=== PATIENT | female | born 1965 | race African-American/Black ===

== ENCOUNTER 2020-06-09 12:13 | Emergency (ER) | payer OTHER ==
[2020-06-10 12:54] LABS: SARS-CoV-2 MS2 Positive; SARS-CoV-2 N Gene Negative; SARS-CoV-2 S Gene Negative; SARS-CoV-2 by NAA Not Detected (NotDetected); SARS-CoV-2 orf1ab Negative
== END 2020-06-09 12:27 | disposition home or self-care (01) ==
LOC: ERS 12:13
DX: R05 Cough (principal); R09.81 Nasal congestion; R11.2 Nausea with vomiting, unspecified; Z20.828 Contact with and (suspected) exposure to other viral communicable diseases; E11.9 Type 2 diabetes mellitus without complications; I10 Essential (primary) hypertension; E78.5 Hyperlipidemia, unspecified; F43.10 Post-traumatic stress disorder, unspecified; F32.9 Major depressive disorder, single episode, unspecified
CPT/HCPCS: 87635; 99283; U0003

== ENCOUNTER 2020-06-15 10:34 | Inpatient (IN) | payer OTHER ==
[2020-06-15 11:28] LABS: #Basophils 0.1 thou/uL (0.0-0.2); #Eosinphils 0.2 thou/uL (0.0-0.7); #Lymphocytes 2.5 thou/uL (1.20-3.40); #Monocytes 0.8 thou/uL (0.11-0.59); #Neutrophils 7.3 thou/uL (1.40-6.50); %Basophils 0.5 % (0.0-1.0); %Eosinophils 1.7 % (0.0-10.0); %Lymphocytes 23.1 % (21.0-51.0); %Monocytes 7.2 % (0.0-10.0); %Neutrophils 67.6 % (42.0-75.0); Mean Corpuscular HGB CONC 34.7 g/dL (32.0-36.0); Mean Corpuscular Hemoglobin 31.6 pg (27.0-31.0); Mean Corpuscular Volume 90.8 fL (78.0-98.0); Mean Platelet Volume 7.6 fL (7.4-10.4); Platelet Count 258 thou/uL (130-400); RBC Distribution Width 11.4 % (11.5-14.5); Red Blood Cell (RBC) Count 3.49 mill/uL (4.20-5.40); White Blood Cell (WBC) Count 10.8 thou/uL (4.8-10.8)
--- NOTE | 2020-06-15 11:33 | RAD ---
PORTABLE CHEST 1 VIEW: DATE: 06/15/2020. TIME: 11:50 AM. HISTORY: Cough and shortness of breath. FINDINGS: The heart size is normal. The lungs are expanded without focal areas of consolidation, pneumothorace s, or pleural effusions. There are degenerative changes in the spine. IMPRESSION: No acute process. POS: OFF
[2020-06-15 11:45] LABS: ALT (SGPT) 14 U/L (8-55); AST (SGOT) 13 U/L (5-34); Albumin 3.1 g/dL (3.5-5.0); Alkaline Phosphatase 110 U/L (40-110); Anion Gap 13 mmol/L (10-20); BUN (Urea Nitrogen) 22 mg/dL (9.8-20.1); Bilirubin, Total Less than 0.2 mg/dL (0.2-1.2); Calc. Creatinine Clearance 0 mL/min (70-130); Calcium 8.5 mg/dL (7.8-10.44); Carbon Dioxide 22 mmol/L (22-29); Chloride 101 mmol/L (98-107); Estimated GFR-MDRD 21; Globulin 3.6 g/dL (2.4-3.5); Glucose 300 mg/dL (70-105); Potassium 4.6 mmol/L (3.5-5.1); Protein, Total 6.7 g/dL (6.0-8.3); Sodium 131 mmol/L (136-145)
[2020-06-15 12:33] LABS: CKMB 3.7 ng/mL (0-6.6)
[2020-06-15] MEDS ORDERED: Aspirin Chewable 81 MG TAB ONE (12:53)
[2020-06-15] MEDS ORDERED: Nitroglycerin 2% Ointment 1 INCH/1 GM Packet ONE (12:53)
[2020-06-15] MEDS ORDERED: Dexamethasone 10 MG/ML VIAL ONE (12:53)
[2020-06-15] MEDS ORDERED: Enoxaparin Sodium 100 MG/ML SYRINGE ONE (13:06)
[2020-06-15 13:29] LABS: SARS-CoV-2 NAA Rapid Test Not Detected (NotDetected)
[2020-06-15] MEDS ORDERED: Nitroglycerin 0.4 MG TAB (25 Tab Bottle) PO PRN (14:18)
[2020-06-15] MEDS ORDERED: hydrALAZINE 20 MG/ML VIAL SLOW IVP PRN (14:23)
[2020-06-15] MEDS ORDERED: Labetalol HCl 100 MG/20 ML VIAL SLOW IVP PRN (14:23)
[2020-06-15] MEDS ORDERED: Dextrose 5% in Water 1,000 ML IV PRN (14:24)
[2020-06-15] MEDS ORDERED: Ondansetron ODT 4 MG TAB PO PRN (14:24)
[2020-06-15] MEDS ORDERED: Guaifenesin DM 100-10/5 ML UDCUP PO PRN (14:24)
[2020-06-15] MEDS ORDERED: Acetaminophen 325 MG TAB PO PRN (14:24)
[2020-06-15] MEDS ORDERED: HumaLOG 300 UNITS/3 ML VIAL SC PRN (14:24)
[2020-06-15] MEDS ORDERED: Acetaminophen 650 MG Suppository PR PRN (14:24)
[2020-06-15] MEDS ORDERED: Calcium Carbonate 500 MG ChewTAB PO PRN (14:24)
[2020-06-15] MEDS ORDERED: Ondansetron PF 4 MG/2 ML Vial IVP PRN (14:24)
[2020-06-15] MEDS ORDERED: Dextrose 50% Abboject 50 ML SYRINGE SLOW IVP PRN (14:24)
[2020-06-15] MEDS ORDERED: Sodium Chloride 0.9% 1,000 ML IV SCH (14:30)
--- NOTE | 2020-06-15 15:06 | HP ---
PRIMARY CARE PHYSICIAN: None. CHIEF COMPLAINT: Shortness of breath. HISTORY OF PRESENT ILLNESS: The patient is a 54-year-old female with a past medical history significant for hypertension; hyperlipidemia; diabetes, type 2, non- insulin dependent and noncompliant; GERD; and PTSD, who presents to the ER for the above complaint. The patient reports worsening shortness of breath over the past week. She reports that she believes it started over the weekend, Saturday evening. She reports that the shortness of breath starts when she sleeps. She reports associated cough, nasal congestion, and sore throat. She reports that she has been taking Mucinex, throat lozenges, and gargling with salt water. She did report a fever subjective approximately 2 days ago. She did not check her temperature, but reports that she had some chills. She works at [employer] and she was concerned for COVID. She reports that she was actually tested last prior to her symptoms and was negative. She denies any chest pain or heart palpitation or swelling to her lower extremities. She denies any wheezing or history of PE or DVT. She denies any abdominal pain or vomiting. She does report a couple episodes of diarrhea, but denies any blood in her stool. She has not been on any recent antibiotics, had any travel, or been in the hospital. She has not eaten any uncooked foods. In the ER, she presented hypertensive with a normal heart rate, respiratory rate, and O2 saturation. She was afebrile. EKG was normal sinus rhythm with some T-wave abnormalities. Chest x-ray was negative for any acute process. Initial troponin 0.053. BNP was 59.4. Sodium 131, BUN was 22, creatinine 2.80, and glucose was 300. LFTs were unremarkable. WBCs were 10.8. Second COVID test, which is today, was negative. The patient was given 500 mL of normal saline, full-dose aspirin, nitroglycerin paste on her chest, Lovenox 1 mg/kg, and dexamethasone 10 mg and will be admitted to the floor. PAST MEDICAL HISTORY: 1. Hypertension. 2. Hyperlipidemia. 3. Diabetes, type 2, non-insulin dependent and noncompliant secondary to financial means. 4. Depression. 5. PTSD. 6. GERD. SURGICAL HISTORY: 1. Hysterectomy. 2. Tonsillectomy. SOCIAL HISTORY: The patient lives at home with her daughter. She works at [employer], she started one week ago. She is a former marijuana abuser. Denies any history of tobacco use. Drinks alcohol socially. She ambulates without any assistive devices. FAMILY HISTORY: Noncontributory to this case. ALLERGIES: NO KNOWN DRUG ALLERGIES. HOME MEDICATIONS: None. REVIEW OF SYSTEMS: All review of systems are negative unless otherwise stated in HPI. PHYSICAL EXAMINATION: VITAL SIGNS: Temperature 98.3, blood pressure 164/85, pulse 90, respirations 17 , 97% on room air, and 0/10 pain. CONSTITUTIONAL: The patient is alert and oriented to person, place, and time, in no acute distress, nontoxic in appearance. Eating lunch. HEAD: Atraumatic and normocephalic. EYES: PERRLA. Extraocular muscles intact. Sclerae nonicteric. ENT: Bilateral TMs are intact. The EACs are clear. Nares are patent. Oropharynx is clear. Uvula midline. Moist mucous membranes. No oral lesions. NECK: Full range of motion. No cervical spinous tenderness. No JVD. No cervical adenopathy. RESPIRATORY/CHEST: Respirations even and nonlabored. Clear to auscultation. No rhonchi, wheezes, or rales. CARDIOVASCULAR: S1 and S2 appreciated. Regular rate and rhythm. No murmurs, rubs, or gallops. ABDOMEN: Soft, nontender, and nondistended. Active bowel sounds. No guarding. No rigidity. No rebound. Negative Rovsing sign. Negative Hillman sign. No abdominal bruit auscultated. BACK: Full range of motion. No central spinous tenderness. No CVA tenderness. EXTREMITIES: Upper extremities; full range of motion, normal strength, sensation intact, palpable radial pulses. Lower extremities; full range of motion, normal strength, sensation intact, palpable pedal pulses, no swelling. NEUROLOGIC: A and O x4. Moves all extremities well. No focal motor deficits. Normal gait. SKIN: Clean, dry and intact. PSYCHIATRIC: Normal affect. A and O x4. Denies suicidal or homicidal ideation. LABORATORY DATA AND DIAGNOSTIC STUDIES: Sodium 131, potassium 4.6, chloride 101 , carbon dioxide 22, BUN 22, creatinine 2.8, and glucose 300. Total bilirubin 0.2 , AST 13, ALT 14, and alkaline phosphatase 110. Initial troponin 0.053, CK-MB 3.7 , and BNP 59.4. WBCs 10.8, hemoglobin 11, hematocrit 31.7, and platelets 258. COVID negative. IMPRESSION AND PLAN: 1. Elevated troponin. The patient presents for shortness of breath over the past 5 days. Symptoms more consistent with an upper respiratory infection. The patient has a HEART score of 5, Wells score of 0. We will trend troponins. We will check a TSH and magnesium. Order a cardiac stress test with echo. We will continue aspirin and start statin. We will check the UA and UDS given her history of former marijuana abuse. 2. Shortness of breath, likely secondary to upper respiratory infection symptoms. The patient had negative COVID test on and the 2nd test in the ER today was negative, so that is 2 in one week. Chest x-ray, no acute cardiopulmonary process, unlikely related to COVID. 3. Acute kidney injury. The patient presents with a creatinine of 2.80 and a BUN of 22. No baseline to compare to. We will continue IV fluid resuscitation. We will recheck level in a.m. We will order renal ultrasound. We will hold nephrotoxic medications. 4. Diabetes, type 2, non-insulin dependent, noncompliant. The patient reports that she just started her new job at [employer]. She does not have any money to buy medications, so she does not treat her diabetes. Presented with a blood sugar of 300. We will get a UA. The patient's anion gap was 13. We will start Accu- Cheks a.c. and at bedtime. We will provide moderate sliding scale. We will do a diabetic diet and education. Start glipizide and check HA1C. 5. HTN, non compliant secondary to financial situation. Presented BP 164/100. Will start hydralazine and continue nitro-paste. Will monitor BP. 6. Hyponatremia, mild. The patient presented with a sodium of 131. The patient reports some decreased oral intake and diarrhea. We will recheck level in the a.m. 7. History of marijuana abuse. We will check a UDS and UA. 8. Heparin for deep venous thrombosis prophylaxis. Pepcid for gastrointestinal prophylaxis. 9. The patient is a full code. Her contact is maybe a mom, Ainsley, . Discussed this case with Dr. Armijo. Job ID: [id number] [facility]
[2020-06-15 15:38] LABS: Hemoglobin A1c Greater than 14.0 % (4.0-6.0)
[2020-06-15 15:57] LABS: Troponin I 0.051 ng/mL (< 0.028)
[2020-06-15] MEDS: hydrALAZINE 25 MG TAB PO SCH ×2 (16:24→20:09)
[2020-06-15] MEDS: glipiZIDE 5 MG TAB PO SCH (16:24)
[2020-06-15] MEDS: Sodium Chloride 0.9% 1,000 ML IV SCH (16:25)
[2020-06-15] MEDS: HumaLOG 300 UNITS/3 ML VIAL SC PRN ×2 (16:56→22:23)
--- NOTE | 2020-06-15 19:15 | ULT ---
Exam: Bilateral renal ultrasound HISTORY: Acute kidney insufficiency COMPARISON: None FINDINGS: Right kidney: Normal cortical echotexture. No hydronephrosis. Right kidney measurements: 10.1 x 5.4 x 5.2 cm. Left kidney: Normal cortical echotexture. No hydronephrosis Left kidney measurements 11.1 x 6.1 x 4.8 cm. Urinary bladder: Normal mucosa. 350 mL prevoid volume. IMPRESSION: No hydronephrosis.
--- NOTE | 2020-06-15 20:02 | PDOC.EVN ---
Event Note - Event Note Event Note: Chart reviewed. Pt seen. Discussed with [employer] Mr. Carrasco. 54 yo lady with h/o DMII, noncompliant, presenting with presumably EVELIO, poorly controlled DM and elevated troponin. Plan for insulin to treat DM, stress test to risk stratify for ACS. COVID test negative. Agree with findings and plan of care as documented by [employer].
[2020-06-15] MEDS: Famotidine 20 MG TAB PO SCH (20:09)
[2020-06-15] MEDS: Atorvastatin Calcium 40 MG TAB PO SCH (20:09)
[2020-06-15] MEDS: Heparin 5,000 UNITS/ML VIAL SC SCH (20:10)
[2020-06-15] MEDS: Insulin Glargine 10 UNITS in Pre-Filled Syringe 1 EACH SC SCH (20:11)
[2020-06-15] MEDS: Melatonin 3 MG TAB PO PRN (22:14)
[2020-06-15] MEDS: Fluticasone Propionate Nasal Spray 16 gm Bottle NASAL SCH (22:15)
[2020-06-15] MEDS: Nitroglycerin 2% Ointment 1 INCH/1 GM Packet TOP SCH (22:16)
[2020-06-15 23:19] LABS: Bilirubin Negative (Negative); Blood, Urine Trace (Negative); Clarity Clear (Clear); Glucose, Urine (Dipstick) Greater than 1000 mg/dL (Negative); Ketone, Urine Negative (Negative); Leukocyte Negative Leu/uL (Negative); Nitrite Negative (Negative); Protein, Urine (Dipstick) 300 mg/dL (Neg-Trace); RBC/HPF 0-3 HPF (0-3); Specific Gravity, Urine 1.013 (1.002-1.036); Squamous Epithelial 0-3 HPF (0-3); Urobilinogen Normal mg/dL (Less than 2); WBC/HPF 0-3 HPF (0-3); pH, Urine 6.5 (5.0-9.0)
[2020-06-15 23:24] LABS: Amphetamine Not Detected (NotDetected); Barbiturates Screen Not Detected (NotDetected); Benzodiazepine Screen Not Detected (NotDetected); Cocaine Metabolite Screen Not Detected (NotDetected); Medtox Control Line Valid? VALID (VALID); Medtox Reader # READER 4; Methadone Not Detected (NotDetected); Methamphetamine Not Detected (NotDetected); Opiate Screen Not Detected (NotDetected); Oxycodone Screen Not Detected (NotDetected); Phencyclidine (PCP) Not Detected (NotDetected); THC/Cannabinoid Screen Not Detected (NotDetected); Tricyclic Screen Not Detected (NotDetected)
[2020-06-15 23:25] LABS: Bacteria/HPF 2+ HPF (None Seen)
[2020-06-16 04:40] LABS: #Eosinphils 0.3 thou/uL (0.0-0.7); #Lymphocytes 2.1 thou/uL (1.20-3.40); #Monocytes 0.6 thou/uL (0.11-0.59); %Basophils 0.1 % (0.0-1.0); %Eosinophils 1.8 % (0.0-10.0); %Lymphocytes 12.2 % (21.0-51.0); %Monocytes 3.4 % (0.0-10.0); %Neutrophils 82.6 % (42.0-75.0); Hemoglobin 10.1 g/dL (12.0-16.0); Mean Corpuscular HGB CONC 34.3 g/dL (32.0-36.0); Mean Corpuscular Hemoglobin 30.6 pg (27.0-31.0); Mean Corpuscular Volume 89.1 fL (78.0-98.0); Mean Platelet Volume 7.8 fL (7.4-10.4); Platelet Count 284 thou/uL (130-400); RBC Distribution Width 11.2 % (11.5-14.5); Red Blood Cell (RBC) Count 3.31 mill/uL (4.20-5.40); White Blood Cell (WBC) Count 16.9 thou/uL (4.8-10.8)
[2020-06-16] MEDS: Nitroglycerin 2% Ointment 1 INCH/1 GM Packet TOP SCH ×3 (04:52→23:48)
[2020-06-16 05:07] LABS: Anion Gap 15 mmol/L (10-20); BUN (Urea Nitrogen) 28 mg/dL (9.8-20.1); Calc. Creatinine Clearance 33 mL/min (70-130); Calcium 8.4 mg/dL (7.8-10.44); Carbon Dioxide 19 mmol/L (22-29); Chloride 100 mmol/L (98-107); Cholesterol 344 mg/dl (< 200 Desired); Estimated GFR-MDRD 22; Glucose 372 mg/dL (70-105); HDL Cholesterol 49 mg/dL (>60 Neg Risk); Potassium 5.2 mmol/L (3.5-5.1); Sodium 129 mmol/L (136-145); Triglycerides 537 mg/dL (Less than 150)
[2020-06-16] MEDS: HumaLOG 300 UNITS/3 ML VIAL SC PRN ×2 (05:35→17:22)
[2020-06-16] MEDS: Sodium Chloride 0.9% 1,000 ML IV SCH ×2 (05:39→21:07)
[2020-06-16] MEDS ORDERED: Albuterol Sulfate 1.25 MG/3 ML NEB NEB SCH (08:00)
[2020-06-16] MEDS ORDERED: Insulin Glargine 10 UNITS in Pre-Filled Syringe 1 EACH SC SCH (09:00)
[2020-06-16] MEDS: hydrALAZINE 25 MG TAB PO SCH ×3 (09:35→21:08)
[2020-06-16] MEDS: Heparin 5,000 UNITS/ML VIAL SC SCH ×2 (09:35→21:07)
[2020-06-16] MEDS: Famotidine 20 MG TAB PO SCH (09:36)
[2020-06-16] MEDS: Aspirin 325 mg Enteric Coated Tablet PO SCH (09:44)
[2020-06-16] MEDS ORDERED: Regadenoson 0.4 MG/5 ML SYRINGE ONE (10:30)
[2020-06-16] MEDS ORDERED: Lorazepam 0.5 MG TAB PO PRN (11:32)
[2020-06-16 14:21] VITALS: BMI 32.2
[2020-06-16] MEDS: glipiZIDE 5 MG TAB PO SCH ×2 (14:48)
--- NOTE | 2020-06-16 18:01 | PDOC.HOSPP ---
- Subjective Encounter Date: 06/16/20 Encounter Time: 07:30 Subjective: Patient was seen for follow-up regarding acute kidney injury. She denies any chest pain. Shortness of breath is improved. She denies any nausea or vomiting. - Objective Vital Signs & Weight: Vital Signs (12 hours) Temp Pulse Pulse Resp BP BP BP 06/16/20 15:11 98.4 F 104 H 16 159/75 H 06/16/20 14:55 158/73 H 06/16/20 14:00 119 H 167/77 H 204/90 H 06/16/20 13:32 98.4 F 97 18 161/76 H 06/16/20 07:39 97.7 F 87 20 168/82 H Pulse Ox 06/16/20 15:11 95 06/16/20 14:55 06/16/20 14:00 06/16/20 13:32 98 06/16/20 07:39 97 Weight Admit Weight 195 lb 3.2 oz Weight 193 lb 9.6 oz I&O: 06/15/20 06/16/20 06/17/20 06:59 06:59 06:59 Intake Total 1600 2100 Output Total 1400 Balance 200 2100 Result Diagrams: 06/16/20 04:03 06/16/20 04:03 Additional Labs: Accuchecks 06/16/20 06/16/20 06/16/20 16:32 14:49 10:31 POC Glucose 428 H 470 H 218 H 06/16/20 06/15/20 06/15/20 04:04 22:27 20:52 POC Glucose 385 H Greater than 550 H* 527 H Labs and MAR was reviewed by me. EKG Reviewed by me: Yes (Telemetry: NSR) Hospitalist ROS - Review of Systems Constitutional: denies: fever, chills, sweats, weakness, malaise Respiratory: reports: SOB with excertion. denies: cough, dry, shortness of breath, hemoptysis, pleuritic pain, sputum, wheezing Cardiovascular: denies: chest pain, palpitations, orthopnea, paroxysmal noc. dyspnea, edema, light headedness Gastrointestinal: denies: nausea, vomiting, abdominal pain, diarrhea, constipation, melena, hematochezia Genitourinary: denies: dysuria, frequency, incontinence, hematuria, retention Skin: denies: rash, lesions, ronnie, bruising - Medication Medications: Active Medications Generic Name Dose Route Start Last Admin Trade Name Freq PRN Reason Stop Dose Admin Aspirin 81 mg 06/16/20 09:00 06/16/20 09:44 Ecotrin PO 81 mg DAILY BISHOP Administration Atorvastatin Calcium 40 mg 06/15/20 21:00 06/15/20 20:09 Lipitor PO 40 mg HS BISHOP Administration Fluticasone Propionate 0 gm 06/15/20 21:00 06/15/20 22:15 Flonase Nasal Bivins NASAL 1 spr HS BISHOP Administration Glipizide 5 mg 06/15/20 16:30 06/16/20 14:48 Glucotrol PO 5 mg BID-AC BISHOP Administration Heparin Sodium (Porcine) 5,000 units 06/15/20 21:00 06/16/20 09:35 Heparin SC 5,000 units BID BISHOP Administration Hydralazine HCl 10 mg 06/15/20 14:23 06/15/20 18:28 Apresoline SLOW IVP 10 mg Q4H PRN Administration SBP > 180 or DBP > 105 Hydralazine HCl 25 mg 06/15/20 15:00 06/16/20 14:49 Apresoline PO 25 mg TID BISHOP Administration Sodium Chloride 1,000 mls @ 75 mls/hr 06/15/20 15:20 06/16/20 05:39 Normal Saline 0.9% IV 1,000 mls .[id number] BISHOP Administration Insulin Glargine 10 units/ 0.1 mls @ 0 mls/hr 06/15/20 21:00 06/15/20 20:11 Miscellaneous Medication SC 0.1 mls HS BISHOP Administration Insulin Glargine 10 units/ 0.1 mls @ 0 mls/hr 06/16/20 09:00 06/16/20 14:49 Miscellaneous Medication SC 0.1 mls QAM BISHOP Administration Insulin Human Lispro 0 units 06/15/20 14:24 06/16/20 17:22 Humalog SC 10 units .MODERATE SLIDING SC PRN Administration Moderate Correctional Scale Lorazepam 0.5 mg 06/16/20 11:32 06/16/20 11:52 Ativan PO 0.5 mg BIDPRN PRN Administration Anxiety Melatonin 3 mg 06/15/20 21:06/15/20 22:14 Melatonin PO 3 mg HS PRN Administration Insomnia Nitroglycerin 0.5 inch 06/15/20 22:00 06/16/20 14:49 Nitro-Bid 2% Ointment TOP 0.5 inch Q8HR BISHOP Administration - Exam General - other findings: Patient is obese Eye: anicteric sclera ENT: moist mucosa Neck: supple, symmetric, no thyromegaly, no lymphadenopathy Heart: RRR, no gallops, no rubs, normal peripheral pulses Respiratory: CTAB, no wheezes, no rales, no ronchi Gastrointestinal: soft, non-tender, non-distended, normal bowel sounds Extremities: no edema Psychiatric: normal affect, normal behavior, oriented to person, oriented to place Hosp A/P (1) EVELIO (acute kidney injury) Code(s): N17.9 - ACUTE KIDNEY FAILURE, UNSPECIFIED Status: Acute (2) Elevated troponin Code(s): R79.89 - OTHER SPECIFIED ABNORMAL FINDINGS OF BLOOD CHEMISTRY Status : Acute (3) DM2 (diabetes mellitus, type 2) Status: Chronic (4) HTN (hypertension) Code(s): I10 - ESSENTIAL (PRIMARY) HYPERTENSION Status: Chronic - Plan out of bed/ambulate Increase Lantus to 10 units twice daily. Hemoglobin A1c is greater than 14. Continue glipizide. Increase hydralazine to 50 mg 3 times daily. Monitor vital signs and titrate antihypertensives as needed. Await stress test. Continue statin.
[2020-06-16] MEDS: Atorvastatin Calcium 40 MG TAB PO SCH (21:07)
[2020-06-16] MEDS: Fluticasone Propionate Nasal Spray 16 gm Bottle NASAL SCH (21:11)
[2020-06-16] MEDS: Insulin Glargine 10 UNITS in Pre-Filled Syringe 1 EACH SC SCH (21:12)
[2020-06-16] MEDS: Melatonin 3 MG TAB PO PRN (22:49)
[2020-06-17] MEDS: Nitroglycerin 2% Ointment 1 INCH/1 GM Packet TOP SCH ×2 (06:23→15:28)
[2020-06-17] MEDS: HumaLOG 300 UNITS/3 ML VIAL SC PRN ×2 (06:42→11:21)
[2020-06-17] MEDS: hydrALAZINE 25 MG TAB PO SCH (07:40)
[2020-06-17] MEDS ORDERED: HumuLIN 70/30 (300 UNITS/3 ML VIAL) SC SCH (09:00)
[2020-06-17] MEDS ORDERED: Famotidine 20 MG TAB PO SCH (09:00)
[2020-06-17] MEDS: glipiZIDE 5 MG TAB PO SCH ×2 (09:05→15:30)
[2020-06-17] MEDS: Aspirin 325 mg Enteric Coated Tablet PO SCH (09:05)
[2020-06-17] MEDS: Sodium Chloride 0.9% 1,000 ML IV SCH (09:07)
[2020-06-17] MEDS: Heparin 5,000 UNITS/ML VIAL SC SCH (09:08)
--- NOTE | 2020-06-17 09:24 | NM ---
Radionucleotide stress and rest myocardial perfusion scan with SPECT imaging. Left ventricular wall motion evaluation and ejection fraction HISTORY: Chest pain. FINDINGS: Lexiscan protocol. Attenuation correction imaging not performed. Heterogeneous uptake of radiotracer throughout the left ventricular myocardium. No focal perfusion de fects or reversibility are reliably demonstrated. QGS analysis of gated SPECT imaging shows global hypokinesis. Dyskinetic segments of the anterior, la teral, and inferior white. Ejection fraction calculated at 52%. Lung/heart ratio 59%. IMPRESSION : No evidence of focal ischemia. Elevated lung/heart ratio may be indicative of balanced ischemia. Global hypokinesis with ejection fraction 52%.
[2020-06-17 10:12] LABS: #Basophils 0.1 thou/uL (0.0-0.2); #Eosinphils 0.4 thou/uL (0.0-0.7); #Lymphocytes 3.9 thou/uL (1.20-3.40); #Neutrophils 10.7 thou/uL (1.40-6.50); %Basophils 0.6 % (0.0-1.0); %Eosinophils 2.2 % (0.0-10.0); %Lymphocytes 24.2 % (21.0-51.0); %Monocytes 6.2 % (0.0-10.0); %Neutrophils 66.8 % (42.0-75.0); Hemoglobin 10.4 g/dL (12.0-16.0); Mean Corpuscular HGB CONC 34.8 g/dL (32.0-36.0); Mean Corpuscular Hemoglobin 31.6 pg (27.0-31.0); Mean Corpuscular Volume 90.6 fL (78.0-98.0); Mean Platelet Volume 8.3 fL (7.4-10.4); Platelet Count 248 thou/uL (130-400); RBC Distribution Width 11.5 % (11.5-14.5); White Blood Cell (WBC) Count 16.1 thou/uL (4.8-10.8)
[2020-06-17 10:22] LABS: Anion Gap 15 mmol/L (10-20); BUN (Urea Nitrogen) 24 mg/dL (9.8-20.1); Calc. Creatinine Clearance 37 mL/min (70-130); Calcium 7.9 mg/dL (7.8-10.44); Carbon Dioxide 20 mmol/L (22-29); Chloride 102 mmol/L (98-107); Estimated GFR-MDRD 25; Glucose 208 mg/dL (70-105); Potassium 3.9 mmol/L (3.5-5.1); Sodium 133 mmol/L (136-145)
[2020-06-17] MEDS ORDERED: hydrALAZINE 25 MG TAB PO SCH ×2 (10:30→15:00)
--- NOTE | 2020-06-17 12:48 | DIS ---
DATE OF ADMISSION: 06/15/2020 DATE OF DISCHARGE: 06/17/2020 PRIMARY CARE PROVIDER: None. DISCHARGE DIAGNOSES: 1. Acute kidney injury. 2. Uncontrolled diabetes mellitus. 3. Hypertensive urgency. 4. Dyslipidemia. 5. Hyponatremia. CONDITION OF PATIENT ON THE DAY OF DISCHARGE: Stable. I assessed Ms. Kelly Jara on the day of discharge. She denies any chest pain or shortness of breath. Vital signs are stable. S1 and S2 are heard, regular. Lungs are clear to auscultation bilaterally. DISCHARGE MEDICATIONS: 1. Aspirin 81 mg daily. 2. Lipitor 40 mg at bedtime. 3. Glipizide 5 mg two times a day. 4. Novolin 70/30 of 15 units two times a day. 5. Hydralazine 75 mg three times a day. 6. Amlodipine 5 mg daily. HOSPITAL COURSE: Ms. Kelly Jara is a pleasant 54-year-old lady, who was admitted to [facility] on June 15, 2020, for uncontrolled diabetes mellitus and acute on chronic renal failure. She received insulin. She also received statin and antihypertensives. Fasting lipid profile showed triglycerides 537, cholesterol 344, and HDL cholesterol 49. She had indeterminate troponins. She had a nuclear stress test, which showed left ventricular ejection fraction of 52%. There was no evidence of focal ischemia. She had elevated lung/heart ratio, may be indicative of balanced ischemia. She is being discharged home in a stable condition. She has been advised to find primary care provider and follow up in 3 to 5 days. POST-ACUTE CARE FOLLOWUP: With primary care provider. DIET: Diabetic. ACTIVITY: No restrictions. DISCHARGE DESTINATION: Home. TIME SPENT: Total amount of time spent coordinating this discharge: 32 minutes. On the day of discharge, she has sodium 133, potassium 3.9, creatinine 2.45. White count 16,100, hemoglobin 10.4, and platelet count 248,000. COVID test was negative during this hospitalization. Job ID: [id number]
[2020-06-17 15:44] VITALS: TEMP 97.9
[2020-06-17] MEDS ORDERED: Amlodipine 5 MG TAB PO SCH (16:30)
[2020-06-17] MEDS ORDERED: Metoprolol Tartrate 25 MG TAB PO SCH (16:30)
[2020-06-17 17:16] VITALS: BP 159/77
[2020-06-18] MEDS ORDERED: Amlodipine 5 MG TAB PO SCH (09:00)
== END 2020-06-17 18:16 | disposition home or self-care (01) | DRG 683 ==
LOC: ERS 10:34 → 2NO 12:46
PROVIDERS: ADMIT Internal Medicine; ATTEND Internal Medicine
DX: N17.9 Acute kidney failure, unspecified (principal); E87.1 Hypo-osmolality and hyponatremia; Z20.828 Contact with and (suspected) exposure to other viral communicable diseases; I10 Essential (primary) hypertension; E78.5 Hyperlipidemia, unspecified; K21.9 Gastro-esophageal reflux disease without esophagitis; E11.65 Type 2 diabetes mellitus with hyperglycemia; F43.10 Post-traumatic stress disorder, unspecified; F32.9 Major depressive disorder, single episode, unspecified; I16.0 Hypertensive urgency; F12.11 Cannabis abuse, in remission; R79.89 Other specified abnormal findings of blood chemistry; Z90.89 Acquired absence of other organs; Z90.710 Acquired absence of both cervix and uterus; Z91.19 Patient's noncompliance with other medical treatment and regimen
CPT/HCPCS: 36415; 36416; 71045; 76770; 78452; 80048; 80053; 80061; 80306; 81001; 82553; 83036; 83735; 83880; 84443; 84484; 85025; 93005; 93017; 93306; 94760; A9500; J0360; J1100; J1644; J1650; J1815; J2785; U0002